=== PATIENT | male | born 1990 | race Caucasian/White ===

== ENCOUNTER 2017-11-01 20:21 | Observation (INO) | payer OTHER ==
[~2017-11-01] VITALS: Ht 172.7 cm; Wt 83.9 kg
[2017-11-01 20:51] VITALS: Ht 172.7 cm; Wt 83.9 kg
[2017-11-01 21:37] LABS: PLATELET COUNT 198 x10^3mcL (130-400)
[2017-11-01 21:39] LABS: BASOPHIL % 0 % (0-2)
[2017-11-01 22:06] LABS: CALCIUM 8.1 mg/dL (8.5-10.1); CARBON DIOXIDE 27.1 mmol/L (21-32); CHLORIDE SERUM 107 mmol/L (98-107); CREATININE SERUM 0.9 mg/dL (0.7-1.3); GFR1 > 60 mL/min; GLUCOSE SERUM 81 mg/dL (74-106); POTASSIUM SERUM 3.6 mmol/L (3.5-5.1); SODIUM SERUM 144 mmol/L (136-145)
[2017-11-01 22:11] LABS: ALKALINE PHOSPHATASE 57 U/L (46-116); ALT/SGPT 44 U/L (16-63); AST/SGOT 45 U/L (15-37); BILIRUBIN TOTAL 1.1 mg/dL (0.20-1.00); TOTAL PROTEIN, SERUM 6.7 g/dL (6.4-8.2)
[2017-11-02 00:24] LABS: microscopic required? YES; urine erythrocyte 1+ (NEGATIVE)
[2017-11-02 00:54] LABS: AMPHETAMINE QUAL UR NONE DETECTED (See below)
[2017-11-02] MEDS ORDERED: XAN1 PO (05:38)
[2017-11-02 06:37] LABS: PHOSPHOROUS 3.9 mg/dL (2.5-4.9)
[2017-11-02 06:44] LABS: T3 TOTAL 1.49 ng/mL
[2017-11-02 06:47] VITALS: BP 123/76
[2017-11-02 06:49] LABS: FREE T4 1.21 ng/dL (0.76-1.46); FREE THYROXINE INDEX 3.2 ug/dL (1.4-4.5); T4(THYROXINE) 8.7 ug/dL (4.7-13.3)
[2017-11-02 07:12] LABS: CHOLESTEROL/HDL RATIO 2.2
[2017-11-02 08:23] VITALS: BP 123/71
[2017-11-02 11:49] VITALS: BP 123/71
[2017-11-02 12:49] VITALS: BP 121/70
== END 2017-11-02 13:30 | DRG 885 ==
LOC: ED 20:21 → DU 11-02 05:12 → EDBEDREQ 11-02 05:28 → DU 11-02 06:30
PROVIDERS: Emergency Medicine; General Practice
DX: F31.30 Bipolar disorder, current episode depressed, mild or moderate severity, unspecified (principal); R45.851 Suicidal ideations; F12.10 Cannabis abuse, uncomplicated; S50.12XA Contusion of left forearm, initial encounter; Y04.2XXA Assault by strike against or bumped into by another person, initial encounter; Y93.89 Activity, other specified; Y92.018 Other place in single-family (private) house as the place of occurrence of the external cause; Z68.27 Body mass index [BMI] 27.0-27.9, adult
CPT/HCPCS: 83880; 84439; 90714; G0378; G0480; J2060

== ENCOUNTER 2019-02-15 02:08 | Emergency (ER) | payer OTHER ==
[~2019-02-15] VITALS: Ht 172.7 cm; Wt 81.6 kg
[~2019-02-15 02:08] MED LIST: XAN1 PO
[2019-02-15 02:13] VITALS: Ht 172.7 cm; Wt 81.6 kg
[2019-02-15 03:02] LABS: BASOPHIL % 0.3 % (0-2); PLATELET COUNT 278 x10^3mcL (130-400); RED CELL DISTRIBUTION WIDTH 13.6 % (11.5-14.5)
[2019-02-15 03:07] LABS: CALCIUM 8.7 mg/dL (8.5-10.1); CARBON DIOXIDE 24.6 mmol/L (21-32); CHLORIDE SERUM 105 mmol/L (98-107); CREATININE SERUM 0.8 mg/dL (0.7-1.3); GFR1 > 60 mL/min; GLUCOSE SERUM 86 mg/dL (74-106); POTASSIUM SERUM 4.2 mmol/L (3.5-5.1); SODIUM SERUM 143 mmol/L (136-145)
[2019-02-15 03:12] LABS: ALKALINE PHOSPHATASE 60 U/L (46-116); AST/SGOT 27 U/L (15-37); BILIRUBIN TOTAL 0.64 mg/dL (0.20-1.00); TOTAL PROTEIN, SERUM 7.4 g/dL (6.4-8.2)
[2019-02-15 03:25] LABS: ALT/SGPT 38 U/L (16-63)
[2019-02-15 06:59] LABS: T4(THYROXINE) 5.7 ug/dL (4.7-13.3)
[2019-02-15 07:39] LABS: AMPHETAMINE QUAL UR NONE DETECTED (See below)
[2019-02-15] MEDS ORDERED: PROZAC20 MG PO (08:45)
[2019-02-15] MEDS ORDERED: WELSR PO (08:45)
[2019-02-15] MEDS ORDERED: ADDERALL20 MG PO (08:45)
[2019-02-15 09:38] VITALS: BP 143/87
== END 2019-02-15 09:38 | disposition short-term general hospital (02) ==
LOC: ED 02:08
PROVIDERS: Emergency Medicine
DX: R00.0 Tachycardia, unspecified (principal); E86.0 Dehydration; F31.9 Bipolar disorder, unspecified; F41.9 Anxiety disorder, unspecified
CPT/HCPCS: J2060; J3411; J3490; J7030; J7120; Q0092; Q9967

== ENCOUNTER 2019-02-15 02:08 | Emergency (ER) | payer OTHER ==
[2019-02-15] MEDS ORDERED: WELSR PO (08:45)
[2019-02-15] MEDS ORDERED: PROZAC20 MG PO (08:45)
[2019-02-15] MEDS ORDERED: ADDERALL20 MG PO (08:45)
== END 2019-02-15 09:38 | disposition other institution (70) ==
LOC: ED 02:08
DX: Z02.89 Encounter for other administrative examinations (principal)